=== PATIENT | female | born 1995 | race Two or more races ===

== ENCOUNTER 2023-09-03 13:41 | Emergency (ER) | payer SELFPAY ==
[2023-09-03] MEDS: Lidocaine 2% Viscous Solution 15 ML UD PO ONE (14:36)
[2023-09-03] MEDS: Benzocaine 20% Topical Spray UD MUCMEM ONE (14:36)
== END 2023-09-03 14:58 | disposition home or self-care (01) ==
LOC: MW.ED 13:41
DX: K04.7 Periapical abscess without sinus (principal); K02.9 Dental caries, unspecified
CPT/HCPCS: 99283; A9270

== ENCOUNTER 2024-03-17 23:30 | Emergency (ER) | payer SELFPAY ==
[2024-03-18] MEDS ORDERED: Ibuprofen 600 MG Tab PO ONE (00:31)
[2024-03-18] MEDS ORDERED: Cephalexin 500 MG Cap PO ONE (00:31)
== END 2024-03-18 00:40 | disposition home or self-care (01) ==
LOC: MW.ED 23:30
DX: K04.7 Periapical abscess without sinus (principal); Z75.8 Other problems related to medical facilities and other health care
CPT/HCPCS: 99282